=== PATIENT | male | born 1970 | race Caucasian/White ===

== ENCOUNTER 2018-11-20 15:27 | Inpatient (IN) | payer OTHER ==
[~2018-11-20] VITALS: Ht 167.6 cm; Wt 80.3 kg
[2018-11-20 15:33] VITALS: BP 151/97
[2018-11-20 16:00] LABS: ABSOLUTE BASOPHILS 0.1 thou/uL (0.0-0.2); ABSOLUTE EOSINOPHILS 0.2 thou/uL (0.0-0.7); ABSOLUTE LYMPHOCYTES 2.8 thou/uL (0.8-5.3); ABSOLUTE MONOCYTES 0.5 thou/uL (0.0-1.2); ABSOLUTE NEUTROPHILS 4.5 thou/uL (1.6-8.1); EOSINOPHILS 2.9 %; HEMOGLOBIN 14.4 gm/dL (14.0-18.0); LYMPHOCYTES 34.5 %; MCH 30.2 pg (26.0-34.0); MCHC 34.4 g/dL (28.0-37.0); MCV 87.8 fL (80.0-100.0); MONOCYTES 6.6 %; MPV 8.4 fl. (7.2-11.1); NUCLEATED RBCS 0 /100WBC; PLATELET COUNT* 200 thou/uL (150-400); RBC 4.78 mil/uL (4.50-6.00); RDW-CV 14.2 % (10.5-14.5); WBC 8.2 thou/uL (4.0-11.0)
[2018-11-20 16:08] LABS: CALCIUM 8.6 mg/dL (8.5-10.1); CREATININE 1.1 mg/dL (0.6-1.3); POTASSIUM 3.6 mmol/L (3.5-5.1)
[2018-11-20 16:12] LABS: APTT 29.1 Seconds (25.0-31.3); PROTIME 10.4 Seconds (9.20-11.50)
[2018-11-20 16:19] LABS: ALBUMIN 3.5 g/dL (3.4-5.0); TOTAL BILIRUBIN 0.2 mg/dL (<0.1-1.0); TOTAL PROTEIN 6.9 g/dL (6.4-8.2)
[2018-11-20 18:58] LABS: URINE BILIRUBIN NEGATIVE (Negative); URINE BLOOD NEGATIVE (Negative); URINE CLARITY CLEAR; URINE COLOR YELLOW; URINE GLUCOSE-RANDOM NEGATIVE (Negative); URINE KETONES NEGATIVE (Negative); URINE LEUKOCYTES-REFLEX NEGATIVE (Negative); URINE NITRITE-REFLEX NEGATIVE (Negative); URINE PROTEIN NEGATIVE (Negative); URINE UROBILINOGEN 0.2 E.U./dl (0.2-1.0)
--- NOTE | 2018-11-20 18:59 | NUR ---
REPORT GIVEN TO ALESSANDRO CONNOLLY WHO IS TO ASSUME PT CARE AT THIS TIME.
--- NOTE | 2018-11-20 20:10 | NUR ---
REPORT CALLED TO ALESSANDRO CARROLL ON . WILL TRANSFER PT
[2018-11-20 20:33] VITALS: BP 155/112
[2018-11-20 21:00] VITALS: BP 149/105
[2018-11-21] VITALS (16 sets, daily range): BP systolic 130–167; BP diastolic 82–118
--- NOTE | 2018-11-21 05:05 | NUR ---
RECEIVED REPORT FROM ED RN. PT TRANSFERRED TO 221. PT A&OX4. GENERATOR TECHNICIAN IN PLACE. VSS. ADMISSION ASSESSMENT AND PHYSICAL ASSESSMENT COMPLETED AND CHARTED. FALL FORM SIGNED. PT ON RA.PT TRACING SR ON TELE. PT COMPLAINED OF MILD CHEST PAIN- MEDS GIVEN PER AUG. STARTED ON HEPARIN DRIP PER PROTOCOL. INSTRUCTED ON NPO POST MIDNIGHT ORDERED. COMMUNICATES UNDERSTANDING. CALL LIGHT WITHIN REACH.
--- NOTE | 2018-11-21 08:00 | NUR ---
RECEIVED REPORT FROM CARLY AND ASSUMED CARE OF PT @ 5425.PT IS A/O X4, VSS,TRACING SR ON THE MONITOR.IV PATENT WITH HEPARIN DRIP INFUSING @ 1166 UNITS/HOUR PER PROTOCOL.PT IS IRRITABLE BUT COOPERATIVE WITH NO C/O PAIN.NPO STATUS MAINTAINED FOR CARDIOLOGY CONSULT.PT INFORMED OF PLAN OF CARE AND COMMUNICATES UNDERSTANDING.PT IS UP AD MANAV AND HAS AMBULATED IN THE HALLWAY WITH .PT LEFT RESTING IN ROOM WITH CALL LIGHT WITHIN REACH.WILL CONTINUE TO MONITOR.
[2018-11-21 12:53] LABS: CHOLESTEROL 236 mg/dL (<200); HDL CHOLESTEROL 33 mg/dL (>40); LDL CHOLESTEROL 171 mg/dL (<100); TC:HDL 7.2 Ratio (Not establshd); TRIGLYCERIDE 164 mg/dL (<150); VLDL 33 mg/dL (<40)
[2018-11-21 12:56] LABS: SERUM ASSESSMENT Clear
--- NOTE | 2018-11-21 16:19 | NUR ---
PT HAD CATH THIS AFTERNOON IN RIGHT GROIN.POST CATH VITALS AND PROTOCOL FOLLOWED.RIGHT GROIN DRESSING CLEAN,DRY, AND INTACT.PT TO REMAIN BEDREST UNTIL 183.PT BLOOD PRESSURE REMAINS ELEVATED.DOCTOR NOTIFIED WITH NEW ORDERS RECEIVED.NEW IV INSERTED IN LEFT FOREARM WITH IVF INFUSING PER ORDERS.NO C/O PAIN.DIET RESUMED.NICOTINE PATCH APPLIED ON THE RIGHT SHOULDER.PT INFORMED OF PLAN OF CARE AND IS IRRITABLE AND ANXIOUS BUT STATES HE UNDERSTANDS.DOCTOR NOTIFIED OF PT ANXIETY-MEDICATIONS GIVEN.PT STATES HE DOESN'T WANT TO STAY IN BED.PT EDUCATED ON BEDREST AND COMPLICATIONS THAT CAN OCCUR.NURSE WAS ABLE TO CALM PT AND KEEP IN BED.FAMILY AT BEDSIDE.HOURLY ROUNDING COMPLETED FOR PT SAFETY.CALL LIGHT WITHIN REACH.WILL CONTINUE TO MONTIOR FOR DURATION OF SHIFT.
[2018-11-22] VITALS: BP 147/104
[2018-11-22 04:00] VITALS: BP 149/109
[2018-11-22 04:44] LABS: HEMOGLOBIN 14.4 gm/dL (14.0-18.0); MCH 29.7 pg (26.0-34.0); MCHC 33.4 g/dL (28.0-37.0); MCV 88.9 fL (80.0-100.0); MPV 8.4 fl. (7.2-11.1); RBC 4.84 mil/uL (4.50-6.00); WBC 9.6 thou/uL (4.0-11.0)
[2018-11-22 05:03] LABS: ALBUMIN 3.3 g/dL (3.4-5.0); CALCIUM 8.4 mg/dL (8.5-10.1); TOTAL BILIRUBIN 0.3 mg/dL (<0.1-1.0); TOTAL PROTEIN 6.8 g/dL (6.4-8.2)
[2018-11-22 05:06] LABS: TROPONIN-I LEVEL 1.56 ng/mL (<0.06)
--- NOTE | 2018-11-22 06:00 | NUR ---
ASSUMED CARE OF PT AFTER REPORT AT 1930. PT A&OX4. VSS. PHYSICAL ASSESSMENT COMPLETED AND CHARTED. PT ON RA. PT TRACING SR ON TELE. PT UPADLIB TO RESTROOM. PT DENIES ANY PAIN OR DISCOMFORT. POST CATH SITE TO RIGHT GROIN CLEAN, DRY & INTACT. NO BLEEDING OR HEMATOMA NOTED. PT RESTED WELL ON BED. HOURLY ROUNDING OBSERVED. CALL LIGHT WITHIN REACH.
--- NOTE | 2018-11-22 07:52 | CON ---
[address] [address] CONSULTATION Name: MEL BISHOP Room: [address] IN M.R.#: [id number] Admission: 11/20/18 Attend Phys: Chanda Wilson Discharge: Date of : 70 Report #: [id number] THIS REPORT FOR: //name// CC: CANDELARIA physician/PCP Ayan Ugalde CARDIOLOGY CONSULTATION REASON FOR CONSULTATION: I was asked by Dr. Ugalde to see this 48-year-old white male in cardiology consultation for evaluation and treatment of chest pain with an elevated troponin. HISTORY OF PRESENT ILLNESS: This man has multiple coronary risk factors including smoking. He stills smokes. He has hypercholesterolemia, hypertriglyceridemia, high blood pressure that is untreated, his cholesterol and triglycerides are also untreated. He has a family history of coronary artery disease as well. He had the onset of chest pain on last Friday on his way to work. Altogether that pain lasted 2 hours before it was finally relieved spontaneously. The pain was substernal. It was an 8 on a scale of 10, it was a pressure sensation. It radiated up into the throat and down the left arm and into the left hand. It was associated with nausea, vomiting and diaphoresis. It was worse with exercise. That pain lasted about 2 hours and finally went away, but since then he has had exercise-induced chest pain that is milder and more brief. The pain tends to go away when he stops exerting. Exertion such as walking brings it on. He also notes that he has had night sweats for about 2 weeks. Since he has been hospitalized, he got aspirin, some metoprolol and heparin drip and his pain has not reoccurred, although he has been quite sedentary in the hospital only walking a few steps to the bathroom. This man does not have a history of coronary artery disease or signs or symptoms of heart failure. He has not had syncope. He has not had signs or symptoms of peripheral vascular disease. He has not had renal disease. He has not had any significant past medical history. He has not had any major illnesses or surgeries. ALLERGIES: He has no known. SOCIAL HISTORY: He is not taking any medications. 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 He has alcoholic beverage only 2-4 per week. He smokes a pack a day. He was told in certain terms by me today to stop smoking. FAMILY HISTORY: Remarkable for his father who at age 45 of heart disease. He said he had atherosclerosis of the heart and fairly suddenly. Grandmother of a heart attack at age 58. Mother had high blood pressure and has a sister with high cholesterol and high blood pressure. The grandmother [place] [address] CONSULTATION Name: MEL BISHOP Room: [address] IN [facility]#: [id number] Admission: 11/20/18 Attend Phys: Chanda Wilson Discharge: Date of : 70 Report #: [id number] REVIEW OF SYSTEMS: Positive for cough, seasonal allergies and arthritis. Otherwise, his review of systems is negative for some 40 different complaints in 14 different system categories. Please see review of system form for details and negatives in review of systems. PHYSICAL EXAMINATION: GENERAL: He presents as a well-developed, well-nourished white male in no acute distress. VITAL SIGNS: Pulse was 79 and regular, blood pressure is 153/113, respirations were 16 and regular, and temperature is 97.7. HEENT: His head was atraumatic. Eyes clear. NECK: Supple. There is no jugular venous distention or hepatojugular reflux. Thyroid is not enlarged. There is no adenopathy. SKIN: Warm and dry. Mucous membranes are moist. LUNGS: Clear to auscultation and percussion. HEART: Revealed normal first and second heart sound with a soft S4. There is no S3. There are no murmurs, rubs, thrills, heaves or gallops. PMI is nondisplaced. ABDOMEN: Soft, flat, nontender, no palpable masses. There is no organomegaly. EXTREMITIES: Reveal no cyanosis, clubbing or edema. NEUROLOGIC: The patient mentated normally, talked normally, and moved all extremities normally. LABORATORY DATA: His EKG shows normal sinus rhythm with left anterior fascicular block. He says he has had a left anterior fascicular block since he was in his 20s. There are no acute changes. His initial troponin was 0.42 and subsequently it was 0.5 and then 0.52. There is no troponin since last night. Chest x-ray is unremarkable. A CT of the chest was done that was a pulmonary CT angio, which did show heavy calcification of the coronary arteries. IMPRESSION: 1. Non-ST segment elevation myocardial infarction. 2. Left anterior fascicular block. 3. Acute coronary syndrome with unstable angina. 4. Coronary calcification. 5. Essential hypertension. 6. Hypercholesterolemia. 7. Hypertriglyceridemia. 8. Family history of coronary artery disease. 9. Smoking. RECOMMENDATION: This man should have cardiac catheterization and coronary angiography today. Dr[place] [address] CONSULTATION Name: MEL BISHOP Room: [address] IN ..#: [id number] Admission: 11/20/18 Attend Phys: Chanda Wilson Discharge: Date of : 70 Report #: [id number] Thank you very much for asking me to see the patient. If there are any questions, please feel free to contact me. <ELECTRONICALLY SIGNED> By: Marylou Shelton MD, FACC 11/22/18 0752 1227 2050F. Davide Shelton MD, FACC /nt
[2018-11-22 08:18] VITALS: BP 165/103
--- NOTE | 2018-11-22 09:49 | NUR ---
RECEIVED REPORT FROM CARLY AND ASSUMED CARE OF PT @ 1343.PT IS A/O X4,VSS,TRACING SR ON THE MONITOR.RIGHT GROIN CLEAN,DRY, AND INTACT.IV PATENT AND SALINE LOCKED.PT IS CALM AND COOPERATIVE BUT ANXIOUS TO BE DISCHARGED.PT IS UP AD MANAV AND HAS AMBULATED IN THE HALLWAY.PT LEFT RESTING IN ROOM WITH CALL LIGHT WITHIN REACH.WILL CONTINUE TO MONITOR.
--- NOTE | 2018-11-22 10:47 | CARD ---
[facility] [address] [place] [address] CARDIAC CATH REPORT Name: MEL BISHOP Room: 222-P ADM IN .R.#: [id number] Admission: 11/20/18 Attend Phys: Chanda Wilson Discharge: Date of : 70 Report #: [id number] THIS REPORT FOR: //name// APPROVED REPORT Study performed: 11/21/2018 12:44:20 Patient Details Patient Status: In-Patient Room #: 222 The patient is a 48 year-old male Event Personnel Maximiliano Rivera Form Stripper, Christel Valerio RN Manufacturing Machine Operator, Ana Sorto RN Monitor, Randy Saul (R) Scrub Procedures Performed Art Access - R femoral artery* Left Heart Cath w/or w/o Coronaries [id number] [facility] Revasc AMI Total/Sub Single RCA [id number] AMIREVSING Hemostasis w/ Angioseal , IVUS Indication Non-STEMI , Dyspnea, Chest pain Risk Factors Family History, Hypercholesterolemia, Hypertension, Tobacco History () Procedure Narrative A 6fr Ultimum Sheath sheath was inserted into the . Coronary angiography was performed using coronary diagnostic catheters. The right coronary system was accessed and visualized with a 6Fr JR4 catheter. The left coronary system was accessed and visualized with a 6Fr JL4 catheter. The left ventricle was accessed and visualized with a pigtail catheter. The patient tolerated the procedure well and there were no complications associated with the procedure. Intraoperative Conscious Sedation Fentanyl 100 mcg Dose: 1380 mGy Contrast Type and Amount: Visipaque 290 ml Coronary Angiography The patient's coronary anatomy is right dominant. [address] [address] CARDIAC CATH REPORT Name: MEL BISHOP Room: [address] IN .R.#: [id number] Admission: 11/20/18 Attend Phys: Chanda Wilson Discharge: Date of : 70 Report #: [id number] Diagnostic Cath Left Main This is a large caliber vessel, patent with no flow-limiting lesions. LAD This is a moderate size caliber vessel, traversing the anterior wall and wrapping around the apex. The proximal and mid segments are mildly calcified. There is mild diffuse disease in the mid segment, 20%. Diagonal 1 This is a patent vessel, with no flow-limiting lesions. Diagonal 2 This is a patent vessel, with no flow-limiting lesions. Circumflex The proximal segment is mildly ectatic. There is a mild stenosis in the mid segment, 30%. OM1 This is a moderate size caliber vessel, supplies 2 branches, with no flow-limiting lesions. Right Coronary This is a dominant vessel, has ectatic regions in the proximal and mid segments. There are severe occlusions in the proximal and mid segments, 95%. R PDA This is a patent vessel, with no flow-limiting lesions. RPLV This is a patent vessel, with no flow-limiting lesions. Left Ventriculography The left ventricle is normal in size with decreased contractility. The left ventricular ejection fraction is estimated to be 45-50%. Left ventricular wall motion abnormalities are present. There is hypokinesis of the mid to basal inferior wall. Hemodynamics The aortic pressure is 163/68 mmHg with a mean of 66 mmHg. The left ventricular end diastolic pressure is 22 mmHg. PCI Technique Lesion Patient was preloaded with Angiomax IV 13 ml. Percutaneous coronary intervention was performed on the proximal right coronary artery. The lesion stenosis prior to intervention was 95% with PAULO 3 flow. A 6F JR 4.0 Guide Catheter was used to engage the ostium. A Uniplaces: BuzzSumo Wire 180 Interventional Guidewire was used to cross the lesion. BALLOON DILATION A Balloon catheter Trek RX 2.5 X 12 was inserted and inflated up to 8.00atm for 7seconds. Additional Inflation: 8.00atm for 4seconds. Additional Inflation: 8.00atm for 8seconds[place] [address] CARDIAC CATH REPORT Name: MEL BISHOP Room: [address] IN ..#: [id number] Admission: 11/20/18 Attend Phys: Chanda Wilson Discharge: Date of : 70 Report #: [id number] A stent Pieter RX Stent 3.0X26mm was inserted and inflated up to ashley for seconds. Additional Inflation: 16.00atm for 20seconds. Additional Inflation: 18.00atm for 18seconds. POST STENT DEPLOYMENT BALLOON DILATION A Balloon catheter NC Trek RX 3.25 X 12 was inserted and inflated up to 18.00atm for 16seconds. Final angiography reveals 5 % stenosis with PAULO 3 flow. PCI Technique Lesion 2 Percutaneous Coronary Intervention was performed on the mid right coronary artery. The lesion stenosis prior to intervention was 95% with PAULO 3 flow. Balloon Dilation A Balloon catheter Trek RX 2.5 X 12 was inserted and inflated up to 14.00atm for 11seconds. Stent Deployment A drug-eluting stent [place] RX Stent 3.5X12mm was inserted and inflated up to ashley for seconds. Additional Inflation: 18.00atm for 14seconds. Additional Inflation: 14.00atm for 11seconds. Final angiography reveals 0 % stenosis with PAULO 3 flow. Conclusion 1. Successful insertion of drug-eluting stents into the proximal and mid segments of the RCA. 2. Mild disease in the LAD and left circumflex arteries. 3. Mild segmental LV dysfunction. 4. Recommend dual antiplatelet therapy and aggressive risk factor management. <ELECTRONICALLY SIGNED> By: Maximiliano Rivera MD 11/22/18 1047 1047 1047Maximiliano Rivera MD /INF
[2018-11-22] MEDS ORDERED: EFFIENT10 MG PO (12:14)
[2018-11-22] MEDS ORDERED: ASPIR 8181 M1 PO (12:15)
[2018-11-22] MEDS ORDERED: PRINIVIL20 MG PO (12:16)
[2018-11-22] MEDS ORDERED: LIPITOR 20 MG T20 M1 PO (12:16)
[2018-11-22] MEDS ORDERED: NITROGLYCERIN0.4 MG SUBLING (12:16)
[2018-11-22 12:22] VITALS: BP 165/103
[2018-11-22] MEDS ORDERED: TOPROL XL25 MG PO (12:29)
--- NOTE | 2018-11-22 12:39 | NUR ---
PT OK FOR DISCHARGE.PAPERWORK COMPELTED AND GIVEN TO THE PT.SCRIPTS GIVEN WITH EDUCATION.FACE SHEET FAXED TO CARDIOLOGY FOR FOLLOW UP APPOINTMENT.IV REMOVED.HEART MONITOR REMOVED AND RETURNED TO THE NURSING STATION.ALL PERSONAL BELONGINGS PACKED AND TAKEN WITH PT.PT WALKED OUT TO PERSONAL VEHICLE.
--- NOTE | 2018-11-23 13:38 | EKG ---
[facility] [address] [place] [address] ELECTROCARDIOGRAM REPORT Name: EDNAMEL Chanda Room: [address] IN .R.#: [id number] Admission: 11/20/18 Attend Phys: Chanda Wilson Discharge: 11/22/18 Date of : 70 Report #: [id number] THIS REPORT FOR: //name// [facility] ED Test Date: 2018-11-20 Test Time: 15:35:13 Pat Name: MEL BISHOP Department: Room: [facility] Gender: M Trap Setter: DEVIKA : 1970 Requested By: Sofia Costello Order Number: [id number] MD: Vignesh Saldana Measurements Intervals [place] Rate: 86 P: -5 MI: 138 QRS: -56 QRSD: 92 T: 22 QT: 385 QTc: 461 Interpretive Statements Sinus rhythm Left anterior fascicular block No previous ECG available for comparison Electronically Signed On 11-23-2018 13:37:48 CDT by Vignesh Saldana [email or web address] <ELECTRONICALLY SIGNED> By: Vignesh Saldana MD, [facility] 11/23/18 1337 1535 153 Vignesh Saldana MD, FACC /EPI
--- NOTE | 2018-11-23 13:49 | EKG ---
[facility] [address] [place] [address] ELECTROCARDIOGRAM REPORT Name: EDNAMEL Chanda Room: [address] DIS IN M.R.#: [id number] Admission: 11/20/18 Attend Phys: Chanda Wilson Discharge: 11/22/18 Date of : 70 Report #: [id number] THIS REPORT FOR: //name// [facility] Test Date: 2018-11-21 Test Time: 12:32:16 Pat Name: MEL BISHOP Department: Room: [address] Gender: M Pizza Hut Assistant: : 1970 Requested By: Maximiliano Rivera Order Number: [id number] Delvin MD: Vignesh Saldana Measurements Intervals [place] Rate: 66 P: -5 AL: 155 QRS: -49 QRSD: 96 T: 6 QT: 423 QTc: 444 Interpretive Statements Sinus rhythm Left anterior fascicular block Electronically Signed On 11-23-2018 13:49:29 CDT by Vignesh Saldana [email or web address] <ELECTRONICALLY SIGNED> By: Vignesh Saldana MD, [facility] 11/23/18 1349 1232 1232 Vignesh Saldana MD, FACC /EPI
--- NOTE | 2018-11-23 13:51 | EKG ---
[facility] [address] [place] [address] ELECTROCARDIOGRAM REPORT Name: EDNAMEL Chanda Room: [address] DIS IN M.R.#: [id number] Admission: 11/20/18 Attend Phys: Chanda Wilson Discharge: 11/22/18 Date of : 70 Report #: [id number] THIS REPORT FOR: //name// [facility] Test Date: 2018-11-21 Test Time: 14:44:21 Pat Name: MEL BISHOP Department: Room: [address] Gender: M Community Development Technician: : 1970 Requested By: Marylou Shelton Order Number: [id number] Delvin MD: Vignesh Saldana Measurements Intervals [place] Rate: 69 P: -8 NE: 163 QRS: -40 QRSD: 94 T: 21 QT: 409 QTc: 438 Interpretive Statements Sinus rhythm Left anterior fascicular block Electronically Signed On 11-23-2018 13:50:51 CDT by Vignesh Saldana [email or web address] <ELECTRONICALLY SIGNED> By: Vignesh Saldana MD, [facility] 11/23/18 1350 1444 1444 Vignesh Saldana MD, FACC /EPI
== END 2018-11-22 12:49 | disposition home or self-care (01) | DRG 246 ==
LOC: M.ERS 15:27 → M.TBA-ER 18:18 → M.2W 18:18
PROVIDERS: Internal Medicine; Internal Medicine Cardiovascular Disease; Nurse Practitioner; ADMIT Internal Medicine
PROC: B2111ZZ Fluoroscopy of Multiple Coronary Arteries using Low Osmolar Contrast (ICD-10-PCS; principal; 2018-11-21)
PROC: 027035Z Dilation of Coronary Artery, One Artery with Two Drug-eluting Intraluminal Devices, Percutaneous Approach (ICD-10-PCS; principal; 2018-11-21)
PROC: B2151ZZ Fluoroscopy of Left Heart using Low Osmolar Contrast (ICD-10-PCS; principal; 2018-11-21)
PROC: 4A023N7 Measurement of Cardiac Sampling and Pressure, Left Heart, Percutaneous Approach (ICD-10-PCS; principal; 2018-11-21)
DX: I21.4 Non-ST elevation (NSTEMI) myocardial infarction (principal); I50.21 Acute systolic (congestive) heart failure; E78.00 Pure hypercholesterolemia, unspecified; F17.210 Nicotine dependence, cigarettes, uncomplicated; I44.4 Left anterior fascicular block; I20.0 Unstable angina; E78.1 Pure hyperglyceridemia; Z82.49 Family history of ischemic heart disease and other diseases of the circulatory system

== ENCOUNTER 2021-04-18 09:01 | Emergency (ER) | payer OTHER ==
[~2021-04-18] VITALS: Ht 167.6 cm; Wt 81.7 kg
[~2021-04-18 09:01] MED LIST: ASPIR 8181 M1 PO; EFFIENT10 MG PO; LIPITOR 20 MG T20 M1 PO; NITROGLYCERIN0.4 MG SUBLING; PRINIVIL20 MG PO; TOPROL XL25 MG PO
[2021-04-18 10:38] LABS: ABSOLUTE BASOPHILS 0.1 thou/uL (0.0-0.2); ABSOLUTE EOSINOPHILS 0.3 thou/uL (0.0-0.7); ABSOLUTE LYMPHOCYTES 2.2 thou/uL (0.8-5.3); ABSOLUTE MONOCYTES 0.6 thou/uL (0.0-1.2); ABSOLUTE NEUTROPHILS 5.3 thou/uL (1.6-8.1); BASOPHILS 1.4 %; EOSINOPHILS 3.7 %; HEMATOCRIT 42.5 % (42.0-52.0); HEMOGLOBIN 14.7 gm/dL (14.0-18.0); LYMPHOCYTES 26.1 %; MCH 30.3 pg (26.0-34.0); MCHC 34.5 g/dL (28.0-37.0); MCV 87.8 fL (80.0-100.0); MPV 8.6 fl. (7.2-11.1); NUCLEATED RBCS 0 /100WBC; PLATELET COUNT* 176 thou/uL (150-400); POLYS 61.8 %; RBC 4.84 mil/uL (4.50-6.00); WBC 8.5 thou/uL (4.0-11.0)
[2021-04-18 10:49] LABS: CALCIUM 8.7 mg/dL (8.5-10.1); POTASSIUM 3.9 mmol/L (3.5-5.1)
[2021-04-18 11:03] LABS: ALBUMIN 3.6 g/dL (3.4-5.0); CK-MB MASS 1.3 ng/mL (<0.5-3.6); MAGNESIUM 2.1 mg/dL (1.8-2.4); TOTAL BILIRUBIN 0.3 mg/dL (<0.1-1.0); TOTAL PROTEIN 7.2 g/dL (6.4-8.2)
[2021-04-18 12:40] VITALS: BP 132/96
--- NOTE | 2021-04-18 14:50 | EKG ---
[place] [address] ELECTROCARDIOGRAM REPORT Name: EDNAMEL GREGORY [id number] Admission: 04/18/21 Attend Phys: Discharge: 04/18/21 Date of : 70 Date of Service: 04/18/[address] Report #: [id number] THIS REPORT FOR: //name// [facility] ED Test Date: 2021-04-18 Test Time: 09:08:13 Pat Name: MEL BISHOP Department: Room: Gender: Extruder Operator Vertical: : 1970 Requested By: Pete Dewitt Order Number: [id number] MD: Vignesh Saldana Measurements Intervals [place] Rate: 76 P: 49 SD: 179 QRS: -62 QRSD: 84 T: 53 QT: 396 QTc: 446 Interpretive Statements Sinus rhythm Left anterior fascicular block Compared to ECG 11/21/2018 14:44:21 No significant changes Electronically Signed On 04-18-2021 14:50:11 WHITE METAL CORROSION PROOFER by Vignesh Saldana [email or web address] <ELECTRONICALLY SIGNED> By: Vignesh Saldana MD, [facility] 04/18/21 145 0908 0908 Vignesh Saldana MD, [facility] /EPI
--- NOTE | 2021-04-18 17:09 | CON ---
[address] [address] CONSULTATION Name: MEL BISHOP GREGORY Room: [facility] Edna#: [id number] Admission: 04/18/21 Attend Phys: Discharge: 04/18/21 Date of : 70 Report #: [id number] THIS REPORT FOR: cc: Edwardo Lujan MD [facility] Edwardo Lujan MD [facility] Vignesh Saldana MD [facility] ~ cc: Bautista Duong DO DATE OF CONSULTATION: 04/18/2021 CARDIOLOGY CONSULTATION HISTORY OF PRESENT ILLNESS: The patient is a 50-year-old white male whom I was asked to see in the Emergency Room after he complained of chest pain. The patient initially presented in 11/2018 with chest pain here at [facility]. Heart catheterization showed a 95% stenosis, proximal right coronary artery, ejection fraction 50%. He then had drug-eluting stents placed in the proximal right coronary artery by Dr. Rivera. He last saw Dr. Lujan, nurse practitioner, last May. He does not exercise on a regular basis. He was doing well until 2 days ago when he felt numbness of his left arm. He had some discomfort in his chest. This lasted all night long. Yesterday, he again had the numbness and chest tightness. He went to work last night since he works nights at [employer]. The discomfort was there all night long. This morning, he vomited when he woke up at 8:00. His brought him to the hospital for further evaluation and treatment. He denied the pain being related to food. He does have a chronic cough, but denied the pain being related to coughing. He has had no fever. He denies any trauma to his chest. There was no rash. He took a nitroglycerin and this did seem to help. He noticed a loose stool. This morning, he felt somewhat nauseated and fatigued. PAST MEDICAL AND SURGICAL HISTORY: Significant for tonsillectomy. He has a history of hypertension, hyperlipidemia. CURRENT MEDICATIONS: Includes metoprolol, lisinopril, Lipitor. He previously complained of myalgias on atorvastatin and he was on Repatha injections for a while, but then switched back to atorvastatin. ALLERGIES: He has no known drug allergies. FAMILY HISTORY: His father of a heart attack. SOCIAL HISTORY: He is . He and his live in [place]. 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 Smokes a pack of cigarettes a day. No alcohol abuse. REVIEW OF SYSTEMS: No history of stroke. He [place] [address] CONSULTATION Name: MEL BISHOP GREGORY Room: [facility] Bishop#: [id number] Admission: 04/18/21 Attend Phys: Discharge: 04/18/21 Date of : 70 Report #: [id number] shortness of breath. No history of liver disease, kidney disease, cancer, psychiatric illness, chronic skin condition. PHYSICAL EXAMINATION: GENERAL: Revealed a middle-aged male, appeared in no acute distress. VITAL SIGNS: He had a blood pressure of 160/90, pulse is 80. HEENT: He was anicteric. Conjunctivae pink. Mucous membranes are moist. NECK: Veins nondistended. No carotid bruits. Neck is supple. CHEST: Clear to auscultation. HEART: Regular rate and rhythm. No significant murmur. ABDOMEN: Soft. EXTREMITIES: Had no edema. Posterior tibial pulse 2+ bilaterally. SKIN: Cool and dry. NEUROLOGIC: Nonfocal. LABORATORY DATA: ECG shows a sinus rhythm, left axis, no significant ST or T-wave changes were noted. The patient had a chest x-ray this morning in the Emergency Room showed normal heart size, clear lung luther. His lab work in the Emergency Room, creatinine 1.0. High sensitivity troponin was less than 4. His hemoglobin 14.7. COVID antigen test was not done. IMPRESSION AND RECOMMENDATIONS: 1. Chest pain, reason unclear. Previous stents. However, the patient has had chest pain. For 48 hours, there is no ECG changes or rise in troponin. Suspect noncardiac. Consider stress testing. 2. Nausea and vomiting, possible gastritis. 3. Hypertension. The patient is on a beta carolina and CHRISTIANO inhibitor. 4. Hyperlipidemia. The patient is on a statin drug. 5. Tobacco abuse. 6. Chronic bronchitis. <ELECTRONICALLY SIGNED> By: Vignesh Saldana MD, [facility] 04/18/21 1709 1125 1204Dgalen Saldana MD, FACC /nt
== END 2021-04-18 12:41 | disposition home or self-care (01) ==
LOC: M.ERS 09:01
PROVIDERS: Family Medicine
DX: R07.89 Other chest pain (principal); F17.210 Nicotine dependence, cigarettes, uncomplicated; Z90.89 Acquired absence of other organs; Z79.82 Long term (current) use of aspirin; Z79.899 Other long term (current) drug therapy